=== PATIENT | male | born 1975 | race African-American/Black ===

== ENCOUNTER 2021-05-29 16:29 | Emergency (ER) | payer MEDICAID ==
[~2021-05-29] VITALS: Ht 182.9 cm; Wt 100.0 kg
[2021-05-29 16:30] VITALS: BP 160/100
== END 2021-05-29 18:50 | disposition home or self-care (01) ==
LOC: ER 16:29
DX: S00.03XA Contusion of scalp, initial encounter (principal); W01.0XXA Fall on same level from slipping, tripping and stumbling without subsequent striking against object, initial encounter; Y93.89 Activity, other specified; Y92.89 Other specified places as the place of occurrence of the external cause; Y99.8 Other external cause status
CPT/HCPCS: 99284

== ENCOUNTER 2021-06-01 03:52 | Emergency (ER) | payer MEDICAID ==
[~2021-06-01] VITALS: Ht 182.9 cm; Wt 97.0 kg
[2021-06-01 06:43] VITALS: BP 159/103
== END 2021-06-01 06:50 | disposition home or self-care (01) ==
LOC: ER 03:54
DX: S09.8XXA Other specified injuries of head, initial encounter (principal); S06.0X9A Concussion with loss of consciousness of unspecified duration, initial encounter; B20 Human immunodeficiency virus [HIV] disease; R40.2410 Glasgow coma scale score 13-15, unspecified time; W22.09XA Striking against other stationary object, initial encounter; Y93.9 Activity, unspecified; Y92.9 Unspecified place or not applicable
CPT/HCPCS: 99284